=== PATIENT | female | born 1985 | race Caucasian/White ===

== ENCOUNTER → 2023-06-08 07:28 | Outpatient (REF) | payer OTHER, SELFPAY | LOC: EMG 07:28 | PROVIDERS: ATTENDING PHYSICIAN Psychiatry & Neurology Neurology; FAMILY PHYSICIAN Nurse Practitioner Family | DX: R20.0 Anesthesia of skin (principal) | CPT/HCPCS: 95886; 95909 ==

== ENCOUNTER → 2023-06-08 12:52 | Outpatient (REF) | payer OTHER, SELFPAY | LOC: HWRAD 12:52 | PROVIDERS: ATTENDING PHYSICIAN Psychiatry & Neurology Neurology; FAMILY PHYSICIAN Nurse Practitioner Family | DX: R07.9 Chest pain, unspecified (principal); E04.1 Nontoxic single thyroid nodule | CPT/HCPCS: 71046; 76536 ==

== ENCOUNTER → 2023-06-14 07:18 | Outpatient (REF) | payer OTHER, SELFPAY | LOC: MRI 3T 07:18 | PROVIDERS: ATTENDING PHYSICIAN Psychiatry & Neurology Neurology; FAMILY PHYSICIAN Nurse Practitioner Family | DX: G54.0 Brachial plexus disorders (principal) | CPT/HCPCS: 71550 ==

== ENCOUNTER → 2023-08-07 07:17 | Outpatient (REF) | payer OTHER, SELFPAY | LOC: HWRAD 07:17 | PROVIDERS: ATTENDING PHYSICIAN Nurse Practitioner Family | DX: R59.1 Generalized enlarged lymph nodes (principal) | CPT/HCPCS: 76536 ==

== ENCOUNTER → 2023-10-09 10:34 | Outpatient (REF) | payer OTHER, SELFPAY ==
[2023-10-09 11:35] LABS: % Basophils 0.8 % (0-2); % Eosinophils 2.1 % (0-6); % Immature Granulocytes 0.2 % (0-0.5); % Lymphocytes 28.7 % (20.5-51.1); % Monocytes 6.6 % (1.7-9.3); % Neutrophils 61.6 % (42.2-75.2); Absolute Eosinophils 0.1 10^3/uL (0-0.7); Absolute Lymphocytes 1.4 10^3/uL (1.2-3.4); Absolute Monocytes 0.3 10^3/uL (0.1-0.6); Hematocrit 35.7 % (37.0-47.0); Hemoglobin 12.6 g/dL (12.0-16.0); Mean Corp Hgb Conc. 35.3 g/dL (33.0-37.0); Mean Platelet Volume 10.6 fL (7.4-10.4); Nucleated Red Blood Cells % 0 %; Platelet Count 198 10^3/uL (130-400); Red Cell Dist. Width 12.9 % (11.5-14.5); White Blood Cell Count 4.9 10^3/uL (4.8-10.8)
[2023-10-09 11:44] LABS: ALT (SGPT) 40 U/L (0-35); AST (SGOT) 37 U/L (14-36); Albumin 4.8 g/dl (3.5-5.0); Alkaline Phosphatase 62 U/L (38-126); Blood Urea Nitrogen 13 mg/dl (7-17); Calcium 9.5 mg/dl (8.4-10.2); Carbon Dioxide 30 mmol/L (22-30); Chloride 103 mmol/L (98-107); Glucose 86 mg/dl (70-99); Lipase 165 U/L (23-300); Potassium 4.3 mmol/L (3.5-5.1); Sodium 142 mmol/L (135-145); Total Bilirubin 0.5 mg/dl (0.2-1.3); Total Protein 7.9 g/dl (6.3-8.2); eGFR > 60.00
== END ==
LOC: HWLAB 10:34
PROVIDERS: ATTENDING PHYSICIAN Nurse Practitioner Family
DX: M54.50 Low back pain, unspecified (principal); Z87.442 Personal history of urinary calculi
CPT/HCPCS: 36415; 72110; 74018; 80053; 83690; 85025

== ENCOUNTER → 2023-10-14 11:58 | Outpatient (REF) | payer OTHER, SELFPAY | LOC: HWRAD 11:58 | PROVIDERS: ATTENDING PHYSICIAN Nurse Practitioner Family | DX: R10.2 Pelvic and perineal pain (principal); M54.50 Low back pain, unspecified | CPT/HCPCS: 74177; Q9967 ==

== ENCOUNTER 2023-10-27 06:10 | Outpatient (RCR) | payer OTHER, SELFPAY | END 2023-10-27 23:59 | disposition home or self-care (01) | LOC: RPT 06:10 | PROVIDERS: ATTENDING PHYSICIAN Psychiatry & Neurology Neurology; FAMILY PHYSICIAN Nurse Practitioner Family | DX: G54.0 Brachial plexus disorders (principal); Z73.6 Limitation of activities due to disability; M62.81 Muscle weakness (generalized) | CPT/HCPCS: 97110; 97163 ==

== ENCOUNTER 2023-11-11 18:05 | Outpatient (RCR) | payer OTHER, SELFPAY | END 2023-11-13 07:16 | disposition home or self-care (01) | LOC: RPT 18:05 | PROVIDERS: ATTENDING PHYSICIAN Psychiatry & Neurology Neurology; FAMILY PHYSICIAN Nurse Practitioner Family | DX: G54.0 Brachial plexus disorders (principal); Z73.6 Limitation of activities due to disability; M62.81 Muscle weakness (generalized) | CPT/HCPCS: 97110; 97140 ==

== ENCOUNTER 2024-01-19 16:39 | Inpatient (IN) | payer OTHER, SELFPAY ==
[2024-01-15 11:32] LABS: % Basophils 0.6 % (0-2); % Eosinophils 2.1 % (0-6); % Immature Granulocytes 0.2 % (0-0.5); % Lymphocytes 34.7 % (20.5-51.1); % Monocytes 5.8 % (1.7-9.3); % Neutrophils 56.6 % (42.2-75.2); Absolute Eosinophils 0.1 10^3/uL (0-0.7); Absolute Lymphocytes 1.8 10^3/uL (1.2-3.4); Absolute Monocytes 0.3 10^3/uL (0.1-0.6); Absolute Neutrophils 2.9 10^3/uL (1.4-6.5); Hematocrit 33.5 % (37.0-47.0); Hemoglobin 11.7 g/dL (12.0-16.0); Mean Corp Hgb Conc. 34.9 g/dL (33.0-37.0); Mean Corpuscular Hgb 29.3 pg (27.0-31.0); Mean Platelet Volume 10.2 fL (7.4-10.4); Nucleated Red Blood Cells % 0 %; Platelet Count 204 10^3/uL (130-400); Red Blood Cell Count 3.99 10^6/uL (4.20-5.40); Red Cell Dist. Width 12.3 % (11.5-14.5); White Blood Cell Count 5.1 10^3/uL (4.8-10.8)
[2024-01-15 11:40] LABS: INR 1.12; PT 14.3 Sec (11.4-14.6)
[2024-01-15 11:55] LABS: Blood Urea Nitrogen 12 mg/dl (7-17); Calcium 9.7 mg/dl (8.4-10.2); Carbon Dioxide 28 mmol/L (22-30); Chloride 102 mmol/L (98-107); Glucose 82 mg/dl (70-99); Potassium 4.3 mmol/L (3.5-5.1); Sodium 141 mmol/L (135-145); eGFR > 60.00
[2024-01-19] VITALS (24 sets, daily range): BP systolic 30–132; BP diastolic 52–93; BMI 21.3
[2024-01-19 10:06] LABS: HCG, Urine Qualitative Screen Negative
[2024-01-19] MEDS: BACTROBAN NASAL 1 GRAM NASAL (10:06)
[2024-01-19] MEDS: NSS 500 IV (10:06)
[2024-01-19] MEDS: VANCOCIN 200 IV (10:48)
--- NOTE | 2024-01-19 11:52 | W.SUR.PREOP ---
Pre-Operative Surgical Note
-
I have examined this patient prior to the performance of the scheduled procedure.
The patient's condition is unchanged from the time of the current History and
Physical and the patient is able to undergo the scheduled procedure.
--- NOTE | 2024-01-19 14:28 | OR.RPT ---
Operative Report
Operative Report
Date of Operation: 01/19/2024
Pre Op Diagnosis: Left-sided neurogenic thoracic outlet syndrome
Post Op Diagnosis: Left-sided neurogenic thoracic outlet syndrome
Procedure: LEFT transaxillary first rib resection
Surgeon: Mann Stearns III, MD
Anesthesia: General
Complications: None
Estimated Blood Loss: 20 cc
History and Indications for Procedure: 38-year-old female with neurogenic thoracic outlet syndrome. She had failed nonoperative therapy. She was brought to the operating room for thoracic outlet decompression.
Procedure in Detail: Yana Blair was correctly identified and placed supine on the operating table. After adequate induction of anesthesia she was positioned into a right lateral decubitus position on a beanbag with her left side facing
towards the ceiling. All pressure points were closely inspected and padded with the assistance of the nursing and anesthesia staff. The left arm, axilla and chest were prepped and draped in the usual sterile fashion. Preoperative antibiotics were
administered. A timeout procedure was performed with the nursing and anesthesia staff confirming the patients identity as well as the nature and laterality of the procedure.
At the base of the left axillary hairline a horizontal incision was made. Dissection was carried straight down to the chest wall using electrocautery. I then tunneled up towards the first rib using blunt dissection, staying right along the chest
wall. Using a combination of electrocautery and gentle blunt dissection the subclavian vein, subclavian artery, anterior scalene muscle and brachial plexus were exposed clearly over the superior margin of the first rib. Using electrocautery, a
periosteal elevator and blunt finger dissection the inferior margin of the first rib was exposed. Blunt finger dissection was used to gently sweep the pleura away from the under surface of the first rib. A right angle clamp was used with
electrocautery to divide the anterior scalene muscle at its insertion onto the first fib. On palpation of the anterior scalene insertion there was an obvious focal bony protuberance. The anterior and posterior cuts were made on the first rib with
the physician scribe and the intervening segment of rib was removed and sent to pathology. Additional bone margin was taken anteriorly and posteriorly on the first rib with a rongeur and the space was widely decompressed. I clearly visualized the brachial
plexus and freed up surrounding tissue using forceps and careful scissor dissection. The posterior edge of the first rib was taken back well posterior to the brachial plexus. With manipulation of the arm, digital palpation and visual inspection I
confirmed wide decompression of the space. The bone edges anteriorly and posteriorly were softened with a rasp. The space was closely inspected and hemostasis was achieved. The space was filled with saline solution and no loss of volume was
demonstrated. A Valsalva maneuver was performed with saline in the wound space and no air bubbles were visualized. The saline was then suctioned away. The wound was then irrigated with saline. A #10 JATINDER drain was left high in the axilla and brought
out through a separate stab incision at the skin.
The wound was then closed in multiple layers and a sterile dressing applied.
The patient tolerated the procedure well and was taken to the PACU in stable condition.
Attestation: I was present and responsible for the entire procedure
Signed:
Mann Stearns III, MD
[facility]
[phone] (ssyl)
[2024-01-19] MEDS: DILAUDID 0.5 MG IV ×4 (14:43→15:40)
[2024-01-19 14:56] LABS: Hematocrit 31.9 % (37.0-47.0); Hemoglobin 11.4 g/dL (12.0-16.0); Mean Corp Hgb Conc. 35.7 g/dL (33.0-37.0); Mean Corpuscular Hgb 31.1 pg (27.0-31.0); Mean Corpuscular Volume 87.2 fL (81.0-99.0); Platelet Count 185 10^3/uL (130-400); Red Blood Cell Count 3.66 10^6/uL (4.20-5.40); Red Cell Dist. Width 12.5 % (11.5-14.5); White Blood Cell Count 8.8 10^3/uL (4.8-10.8)
[2024-01-19 15:11] LABS: Blood Urea Nitrogen 9 mg/dl (7-17); Calcium 8.7 mg/dl (8.4-10.2); Carbon Dioxide 26 mmol/L (22-30); Chloride 103 mmol/L (98-107); Estimated Creatinine Clearance 119 ml/min; Glucose 93 mg/dl (70-99); Potassium 4.1 mmol/L (3.5-5.1); Sodium 139 mmol/L (135-145); eGFR > 60.00
--- NOTE | 2024-01-19 15:14 | CON.INTV ---
Consultation
Consultation Request
Date/Time Consultation Requested: 01/19/2024-3:30 PM
Date/Time Consultation Performed: 01/19/2024-3:30 PM
Requesting Provider: Vascular surgery
Performing Provider: Dr. Perez
Reason for Consultation: Postoperative critical care management
Medical History
-
Chief Complaint: Thoracic outlet syndrome
History of Present Illness:
38-year-old female with a history of neurogenic thoracic outlet syndrome, allergic rhinitis, asthma, endometriosis who underwent multiple modalities of treatment for her thoracic outlet syndrome and underwent transaxillary first rib
resection/scalenectomy-instructor business education consulted for postoperative critical care management 01/19/2024. All I am seeing her postoperatively in the surgical ICU. She denies any shortness of breath, asthma exacerbations, chest tightness, denies any
incisional pain. She has no pleurisy, abdominal pain, nausea, vomiting, weakness, or leg swelling.
Past Medical History
Past Medical History: None (Neurogenic thoracic outlet syndrome. Allergic rhinitis. Asthma. Endometriosis. Nephrolithiasis. Cephalexin induced hives. Sulfa drugs-anaphylaxis)
Social History
Tobacco: Non-smoker
Drug: None
Personal:
Living: With Family
Occupational Exposures: No known asbestos exposure
Environmental Exposures: No known tuberculosis exposure
Family History
Family History: Reviewed & Not Pertinent
Allergies / Home Medications
Allergies
Allergy/AdvReac Type Severity Reaction Status Date / Time
cephalexin Allergy Hives Verified 01/19/24 09:59
Sulfa (Sulfonamide Allergy Anaphylaxis Verified 01/19/24 09:59
Antibiotics)
Home Medications
�Medication �Instructions �Recorded �Confirmed �Last Taken �Type
albuterol sulfate 90 mcg/actuation 1 puff inhalation Q4HPRN PRN 10/25/14 01/19/24 01/05/24 History
aerosol inhaler (Ventolin HFA) shortness of breath
ascorbic acid (vitamin C) 500 mg 1,000 mg PO DAILY 03/01/19/24 01/18/24 08:00 History
tablet (Vitamin C)
cetirizine 10 mg tablet 10 mg PO DAILY 07/16/21 01/19/24 01/18/24 08:00 History
tramadol 50 mg tablet 50 mg PO HS 01/12/24 01/19/24 01/17/24 History
fluticasone 500 mcg-salmeterol 50 1 inh inhalation R BID 01/19/24 01/19/24 01/19/24 08:00 History
mcg/dose blistr powdr for
inhalation (Wixela Inhub)
multivit-iron 18 mg-folic acid 400 1 tab PO DAILY 01/19/24 01/19/24 01/18/24 08:00 History
mcg-calcium 500 mg-minerals tablet
(Women's One Daily)
Review of Systems
-
Unable to Obtain full review of systems at this time due to: Other (Per HPI)
Vitals / Labs / Diagnostic Testing
Vital Signs
Temp Pulse Resp BP Pulse Ox
98.4 F 71 14 114/73 100
01/19/24 10:22 01/19/24 15:00 01/19/24 15:00 01/19/24 15:00 01/19/24 15:00
Lab Data
01/19/24 14:50
01/19/24 14:50
Diagnostic Testing:
Physical Exam
-
Exam:
Well-nourished and well-developed in no apparent distress
HEENT-atraumatic, normocephalic
Neck-supple, no JVD, no bruit
Heart-regular rate and rhythm-no murmurs, rubs or gallops
Chest-clear to auscultation, no wheezes, crackles
Back-no tenderness
Abdomen-soft, nontender, nondistended, no hepatosplenomegaly
Extremities-no cyanosis, clubbing, edema and good peripheral pulses
Integument-intact, no rashes, lesions or ecchymosis
Neurology-alert and oriented, nonfocal motor and sensory exam
Assessment
-
38-year-old female with a history of neurogenic thoracic outlet syndrome, allergic rhinitis, asthma, endometriosis who underwent multiple modalities of treatment for her thoracic outlet syndrome and underwent transaxillary first rib
resection/scalenectomy-instructor business education consulted for postoperative critical care management 01/19/2024.
Neurogenic thoracic outlet syndrome
Status post transaxillary left rib resection-Dr. Stearns-01/19/2024
Mild hiifcj-leukvvzpcv-wzyspysmsy 11.4
Conditions present prior to admission:
Neurogenic thoracic outlet syndrome.
Allergic rhinitis.
Asthma.
Endometriosis.
Nephrolithiasis.
Cephalexin induced hives.
Sulfa drugs-anaphylaxis
2014
Plan
Postoperative surgical intensive care unit monitoring
Supplemental oxygen as needed
Incentive spirometry
Aspiration precautions
Neuro and vascular checks per protocol
Vascular surgery following-correspondence and operative notes reviewed
DVT prophylaxis
Early nutrition
Early mobilization
She sees Dr. Judit Contreras from our office once yearly for her asthma which has been stable-maintained on Advair/generic and albuterol as needed
Critical care statement: A total of 45 minutes of critical care time was provided for this patient today. This includes management of unstable vital signs, evaluation of the patient at bedside, reviewing the patient's pertinent medical records
including radiographs, microbiology, laboratory evaluations, and discussion with primary team, consultants, pharmacy, nutrition, physical therapy, case management, charge nurse, critical care nursing, and respiratory therapy.
Diagnostic data:
Chest x-ray 06/08/2023-NAD
Chest x-ray 01/19/2024-NAD, recent probable left first rib resection, mild subcutaneous emphysema superior left hemithorax likely postsurgical
Chest MRI 06/14/2023-no significant MR abnormalities of the brachial plexus, no evidence for cervical rib, degenerative disc disease C4-5 and C5-6, multiple bilateral thyroid nodules, slightly prominent lymph nodes in the right upper neck
CT abdomen and pelvis 10/14/2023-no acute findings, no calculi, moderate degenerative disc disease L5-S1
Data Reviewed
-
EKG: Report reviewed by me
Radiology: Report reviewed by me
CT Scan: Report reviewed by me
Labs: Labs reviewed by me
Old Records: Reviewed
Critical Care Time (in minutes): 45
[2024-01-19] MEDS: NSS 1000 IV (15:38)
[2024-01-19] MEDS: DILAUDID PCA 30 IV (15:57)
[2024-01-19 17:21] LABS: Magnesium 1.9 mg/dl (1.6-2.3)
--- NOTE | 2024-01-19 17:36 | PTCARENOTE ---
Received pt from PACU s/p L transaxillary first rib resection. Assessment WNL with the exception of L axillary surgical site with aquacel, CDI. JATINDER drain with sanguineous output at site. L radial pulse palpable, hand warm and pink. Complaining of
pain 11/10. Instructed on C4 PLANNER usage and pt demonstrated dose delivery. NSS at 80cc/hr infusing with Dilaudid C4 PLANNER. Purwick applied due to bedrest and pain issues with mvmt. Tolerating sips without nausea, diet advanced. at bedside. Oriented to
ICU, call ornelas within reach.
[2024-01-19] MEDS: TYLENOL 650 MG PO (19:25)
[2024-01-19] MEDS: ADVAIR HFA 230/21 MCG INHALER 2 PUFF INH (19:34)
[2024-01-19] MEDS: FLEXERIL 5 MG PO (23:55)
[2024-01-20] VITALS (38 sets, daily range): BP systolic 100–149; BP diastolic 60–94; PULSE 72; O2SAT 98; BMI 21.4
--- NOTE | 2024-01-20 00:09 | PTCARENOTE ---
Pt s/p thoracic outlet decompression, received resting in bed with family at bedside. Pt using PAINT STRIPING MACHINE OPERATOR appropriately, c/o pain consistent in left axilla & surrounding muscles. Flexoril X1 given PO. Pt c/o LUE numbness/tingling, also present pre-op. JATINDER
X1 with small amount sang output. Aquacell CDI. Afebrile, NSR, IV lines flushed/patent. 2L nasal cannula, RT at bedside for breathing treatments. Regular diet ordered, pt just sipping clears at this time. Hypoactive bowel sounds. Bladder scan 695ml,
straight cathed for 800ml clear yellow urine. Will monitor.
[2024-01-20] MEDS: NSS 1000 IV (04:11)
[2024-01-20 04:18] LABS: Hematocrit 28.4 % (37.0-47.0); Hemoglobin 10.3 g/dL (12.0-16.0); Mean Corp Hgb Conc. 36.3 g/dL (33.0-37.0); Mean Corpuscular Hgb 30.1 pg (27.0-31.0); Platelet Count 164 10^3/uL (130-400); Red Blood Cell Count 3.42 10^6/uL (4.20-5.40); Red Cell Dist. Width 12.7 % (11.5-14.5); White Blood Cell Count 9.3 10^3/uL (4.8-10.8)
--- NOTE | 2024-01-20 04:21 | PTCARENOTE ---
Pt resting comfortably, using SAND OPERATOR Dilaudid appropriately. Pt states pain is 5/10 in left armpit area, but that is an acceptable pain level for her at this time. AM labs pending. Encouraged pt to cough/deep breathe/use IS when awake. Will monitor.
[2024-01-20 04:27] LABS: APTT 29.3 Sec (23.4-35.0)
[2024-01-20 04:44] LABS: Blood Urea Nitrogen 6 mg/dl (7-17); Calcium 8.5 mg/dl (8.4-10.2); Carbon Dioxide 23 mmol/L (22-30); Chloride 106 mmol/L (98-107); Estimated Creatinine Clearance 119 ml/min; Glucose 88 mg/dl (70-99); Potassium 4.2 mmol/L (3.5-5.1); Sodium 139 mmol/L (135-145); eGFR > 60.00
--- NOTE | 2024-01-20 05:25 | DOWNTIME ---
There was a [employer] Client Branch Associate Downtime on 01/20/2024 from 0100 to 01/20/2024 at 0300. Downtime documentation of patient's care, including medication administrations, has been reconciled in the electronic record per guidelines. Refer to the
patient's paper chart under the miscellaneous tab to see printed paper medication records and downtime forms.
[2024-01-20] MEDS: ADVAIR HFA 230/21 MCG INHALER 2 PUFF INH ×2 (07:32→19:37)
--- NOTE | 2024-01-20 07:38 | W.PN.INTV ---
Today's Communication / Plan
Recommendations
Wean oxygen
SSIS DEVELOPER pump wean
Follow-up chest x-ray
Assessment
-
38-year-old female with a history of neurogenic thoracic outlet syndrome, allergic rhinitis, asthma, endometriosis who underwent multiple modalities of treatment for her thoracic outlet syndrome and underwent transaxillary first rib
resection/scalenectomy-field service analyst consulted for postoperative critical care management 01/19/2024.
Neurogenic thoracic outlet syndrome
Status post transaxillary left rib resection-Dr. Stearns-01/19/2024
Small left apical pneumothorax
Mild twolfn-kutrjebqaj-hyhucmmrik 11.4
Conditions present prior to admission:
Neurogenic thoracic outlet syndrome.
Allergic rhinitis.
Asthma.
Endometriosis.
Nephrolithiasis.
Cephalexin induced hives.
Sulfa drugs-anaphylaxis
2014
Plan
Postoperative surgical intensive care unit monitoring
Supplemental oxygen as needed-attempt to wean
Incentive spirometry
Aspiration precautions
Chest x-ray with small left apical pneumothorax
Repeat chest x-ray in several hours
Neuro and vascular checks per protocol
Vascular surgery following-correspondence and operative notes reviewed
SSIS DEVELOPER pump wean
DVT prophylaxis
Early nutrition
Early mobilization
She sees Dr. Judit Contreras from our office once yearly for her asthma which has been stable-maintained on Advair/generic and albuterol as needed
Reviewed the patient's pertinent medical records including radiographs, microbiology, laboratory evaluations, and discussion with primary team, consultants, pharmacy, nutrition, physical therapy, case management, charge nurse, critical care
nursing, and respiratory therapy.
Diagnostic data:
Chest x-ray 06/08/2023-NAD
Chest x-ray 01/19/2024-NAD, recent probable left first rib resection, mild subcutaneous emphysema superior left hemithorax likely postsurgical
Chest MRI 06/14/2023-no significant MR abnormalities of the brachial plexus, no evidence for cervical rib, degenerative disc disease C4-5 and C5-6, multiple bilateral thyroid nodules, slightly prominent lymph nodes in the right upper neck
CT abdomen and pelvis 10/14/2023-no acute findings, no calculi, moderate degenerative disc disease L5-S1
Subjective Dataa
Subjective Data
Date of Service:
Date of Service: January 20, 2024
Chief Complaint: Driver Guide Follow Up and Pulmonary Follow Up
Subjective:
Some complains of left-sided pleurisy, no increase shortness of breath, wheezing, abdominal pain
Review of Systems
General: Other (Per HPI)
Objective Data
Data Reviewed
Vital Signs / I&O / Oxygen:
Vital Signs
Temp Pulse Resp BP Pulse Ox
98.7 F 74 16 100/60 99
01/20/24 04:24 01/20/24 07:32 01/20/24 07:32 01/20/24 03:00 01/20/24 07:32
Intake and Output
01/19/24 01/20/24 01/21/24
06:59 06:59 06:59
Intake Total 1240 / 1240
Output Total 890 / 890
Balance 350 / 350
SaO2 99
Nasal Cannula flow liters per 1.5
minute
Physical Exam
General: Respiratory Distress (n) and Comfortable
HEENT: Normocephalic, Anicteric and Moist Mucous Membranes
Cardiovascular: Regular Rhythm
Respiratory: Wheeze (n), Crackles (n), Rhonchi (n), Non-Labored Respirations, Accessory Resp Muscle Use (n) and Stridor (n)
GI: Soft, Non Distended and Non Tender
Neurology: Awake, Alert and No Motor Deficits
Skin: Warm, Good Color, Cyanosis (n), Jaundice (n) and Rash (n)
Labs/Micro/Reports
Lab Data
01/20/24 04:01
01/20/24 04:01
Laboratory Results
01/19/24 01/20/24
16:48 04:01
PT Cancelled 15.0 H
INR Cancelled 1.20
APTT Cancelled 29.3
[2024-01-20] MEDS: ZYRTEC 10 MG PO (07:59)
[2024-01-20] MEDS: THERAGRAN 1 TABLET PO (07:59)
[2024-01-20] MEDS: VITAMIN C 1000 MG PO (07:59)
--- NOTE | 2024-01-20 08:02 | W.PN.VS ---
Addendum entered and electronically signed by Elan Jordan MD 01/20/24 09:34:
Seen and examined with JANUSZ Carl. Agree with findings as noted below. Patient notes some expected postoperative pain in the scapular area. Otherwise no significant complaints. No shortness of breath. Left upper extremity axillary incision site
dressing clean dry and intact. No hematoma. JATINDER drain serosanguineous. 90 cc total noted. Left arm is soft. Palpable radial pulse. Motor/sensory function intact. Chest x-ray this morning with a small questionable apical pneumothorax but not
clear that it is indeed so. Plan/repeat chest x-ray this morning. PT/OT. Continue JATINDER drain for today. Continue ICU monitoring for now.
Original Note:
Today's Communication / Plan
-
Patient seen and examined at bedside with Dr. Elan Jordan, below plan reviewed with attending
Assessment/Plan
-
Assessment: 38-year-old female POD #1 left first rib resection
Plan:
Given output continue JATINDER drain
Will continue HEAT SEALING MACHINE OPERATOR at this morning, and reevaluate this afternoon if transitioning to p.o. pain management
PT eval and treat
Repeat chest x-ray given official report stating small pneumothorax
Subjective Data
-
Date of Service: January 20, 2024
Patient seen and examined at bedside, does report discomfort at left surgical site radiating to scapula that is managed currently with HEAT SEALING MACHINE OPERATOR. Denies nausea, vomiting, fever, and chills. Does report an improvement in preoperative symptoms such as
left arm paresthesia.
Objective Data
-
Vital Signs
Temp Pulse Resp BP Pulse Ox
98.7 F 74 16 119/74 99
01/20/24 04:24 01/20/24 07:32 01/20/24 07:32 01/20/24 07:00 01/20/24 07:32
Intake and Output
01/19/24 01/20/24 01/21/24
06:59 06:59 06:59
Intake Total 1320 / 1320
Output Total 890 / 890
Balance 430 / 430
Intake:
IV fluids (Total) 1320 / 1320
Normosol 200 / 200
Nss 1,000 ml @ 80 mls/hr IV . 1120 / 1120
[id number] BRENDAN Rx#:[id number]
Output:
Drain Output (Total) /
Left Justin-Mcdonald /
Straight cath output 800 / 800
Lab Results
01/20/24 04:01
01/20/24 04:01
Calcium 8.5 mg/dl (8.4-10.2) 01/20/24 04:01
Magnesium 1.9 mg/dl (1.6-2.3) 01/19/24 14:50
Physical Exam
-
Awake alert oriented x 3, no apparent distress
No tachycardia
No dyspnea
Left upper extremity surgical dressing and drain dressing CDI, no edema, JATINDER drain with serosanguineous output
ABD flat
--- NOTE | 2024-01-20 08:30 | PTCARENOTE ---
Rec'd pt at 0700 awake alert and oriented resting in bed. States overall she is ok but does have 7/10 L shoulder/scapular discomfort that radiates down her L rib cage. Dr. Jordan in and aware. Pt is using Dilaudid LINE UP MACHINE OPERATOR- 0.2 mg dose, 10 minute lockout,
total 1.2 mg/hr max. Infusing via R forearm IV site. L arm is warm- hand is sl cool but nailbeds are pink with refill <2 sec. + radial pulse. Admits to L arm heaviness and sl numbess in the the L upper arm. + movement. L axially with aquacell
dressing that is D+I. L lateral chest JATINDER drain with sang. drainage. JATINDER stipped by Dr. Jordan. Respirs are unlabored. Was on 2l nc with sats of 99%- changed at 0800 to RA with sats of 98%. BS are clear. Monitor SR. + pulses. No edema. VS as documented.
Abd is soft with + BS. Admits to a limited appetite and very sl nausea. Denies need to void currently. IV NSS infusing at 80 ml/hr along with Dilaudid LINE UP MACHINE OPERATOR via R forearm IV Site. Site wnl. Capped int intact R hand. Pt able to help with repositioning.
Plan of care reviewed with pt. Call ornelas in reach.
[2024-01-20] MEDS: TORADOL 15 MG IV ×3 (09:14→23:05)
[2024-01-20] MEDS: D5/0.45%NACL 1000 IV (09:15)
--- NOTE | 2024-01-20 09:15 | PTCARENOTE ---
Pt medicated with Toradol 15 mg IV per MD order. Fair appetite for breakfast. Ate about 40%- states she is just not hungry.
--- NOTE | 2024-01-20 10:20 | PTCARENOTE ---
States the Toradol is helping the L shoulder/arm/rib discomfort. [place] as if she could void. Assisted oob to the commode and voided 950 mls of yellow urine. Complete CHG bath given. Pt assisted to the chair- gait is steady but pt admits she feels
weak. Denies dizziness. Getting 1800 on IS sitting oob. Pt did her own oral care and is sitting oob currently. Call ornelas in reach. Repeat CXRay taken. Call ornelas in reach.
--- NOTE | 2024-01-20 11:10 | PTCARENOTE ---
Pt worked with PT and ambulated in the [place]. Gait was steady but did feel lightheaded- needed to sit for a few minutes [address] through walk. Admits to the L scapular through rib soreness. Pulses unchanged. VS as documented. States sitting up in the
chair feels better than in bed. Family in to see pt. Call ornelas in reach.
--- NOTE | 2024-01-20 12:14 | PTCARENOTE ---
Remains sitting oob. States pain is about a 5. Only new complaint is of some itching feeling in her neck/back/chest and legs. No rash noted. O2 sats are 100% on RA. L arm is warm. + pulses. Axiallary dressing is D+I. JATINDER with sang drainage to bulb
suction. Visiting with family. Will update Vascular surgery. Call ornelas in reach.
[2024-01-20] MEDS: BENADRYL 25 MG IV (12:44)
--- NOTE | 2024-01-20 12:45 | PTCARENOTE ---
Medicated with Benadryl 25 mg IV for itching. Remains resting oob. No rash noted
[2024-01-20] MEDS: ROXICODONE 5 MG PO ×3 (13:26→23:07)
--- NOTE | 2024-01-20 13:45 | PTCARENOTE ---
Pt remains sitting oob. States that the Benadryl helped the itching. Medicated at 1326 with Oxycodone 5 mg po for c/o 6/10 L scapula/arm discomfort, ENVIRONMENTAL COMPLIANCE INSPECTOR and IV fluids dc'd at 1340. Pt then assisted to the bathroom to void. Voided large amt of
urine in the toilet. No other changes.
--- NOTE | 2024-01-20 16:26 | PTCARENOTE ---
Remains sitting oob in the chair visiting with family. No changes in assessment
--- NOTE | 2024-01-20 16:41 | CM ---
Patient seen at bedside with patient friend also present. Patient states she lives with her family in a 2 story home with a nebulizer. Patient PCP is [facility] and she sees the JAIMA Lopez. Patient uses the [facility] in
[place] and stated that she plans on going home with no needs. CM will continue to follow for discharge planning needs.
Plan; home with no needs vs home with Vn
[2024-01-21] VITALS (13 sets, daily range): BP systolic 115–134; BP diastolic 63–86; PULSE 82; O2SAT 98; BMI 21.3
--- NOTE | 2024-01-21 00:30 | PTCARENOTE ---
Pt with much better pain relief with toradol/julia PRN. OOB to bathroom. LUE warm/pink with strong pulse. Will monitor.
[2024-01-21] MEDS: ROXICODONE 5 MG PO ×3 (03:26→12:44)
[2024-01-21 04:15] LABS: Hematocrit 28.3 % (37.0-47.0); Hemoglobin 10.1 g/dL (12.0-16.0); Mean Corp Hgb Conc. 35.7 g/dL (33.0-37.0); Mean Platelet Volume 9.8 fL (7.4-10.4); Platelet Count 163 10^3/uL (130-400); Red Blood Cell Count 3.37 10^6/uL (4.20-5.40); Red Cell Dist. Width 12.9 % (11.5-14.5); White Blood Cell Count 7.1 10^3/uL (4.8-10.8)
[2024-01-21 04:35] LABS: Blood Urea Nitrogen 10 mg/dl (7-17); Calcium 8.6 mg/dl (8.4-10.2); Carbon Dioxide 24 mmol/L (22-30); Chloride 105 mmol/L (98-107); Estimated Creatinine Clearance 119 ml/min; Glucose 91 mg/dl (70-99); Potassium 4.1 mmol/L (3.5-5.1); Sodium 141 mmol/L (135-145); eGFR > 60.00
[2024-01-21] MEDS: TORADOL 15 MG IV ×2 (05:45→11:39)
--- NOTE | 2024-01-21 06:41 | PTCARENOTE ---
No change in previous assessment. See flow for more info.
[2024-01-21] MEDS: THERAGRAN 1 TABLET PO (07:35)
[2024-01-21] MEDS: VITAMIN C 1000 MG PO (07:35)
--- NOTE | 2024-01-21 07:35 | W.PN.INTV ---
Today's Communication / Plan
Recommendations
follow chest x-ray
Analgesia per vascular surgery
Remove JATINDER drain
Transfer out of ICU-possibly home
Assessment
-
38-year-old female with a history of neurogenic thoracic outlet syndrome, allergic rhinitis, asthma, endometriosis who underwent multiple modalities of treatment for her thoracic outlet syndrome and underwent transaxillary first rib
resection/scalenectomy-fire and safety helper consulted for postoperative critical care management 01/19/2024.
Neurogenic thoracic outlet syndrome
Status post transaxillary left rib resection-Dr. Stearns-01/19/2024
Small left apical pneumothorax
Mild rfkffy-wufyeksebm-[id number] 11.4
Conditions present prior to admission:
Neurogenic thoracic outlet syndrome.
Allergic rhinitis.
Asthma.
Endometriosis.
Nephrolithiasis.
Cephalexin induced hives.
Sulfa drugs-anaphylaxis
2014
Plan
Postoperative surgical intensive care unit monitoring
Supplemental oxygen as needed-attempt to wean
Incentive spirometry
Aspiration precautions
Chest x-ray with small left apical pneumothorax
Follow daily chest x-ray
Neuro and vascular checks per protocol
Vascular surgery following-correspondence and operative notes reviewed
LOAN MANAGER pump conversion to oral medications
Remove JATINDER drain and follow-up chest x-ray
DVT prophylaxis
Early nutrition
Early mobilization
Patient stable for transfer out of ICU-call pulmonary if respiratory issues arise
She sees Dr. Judit Contreras from our office once yearly for her asthma which has been stable-maintained on Advair/generic and albuterol as needed
Reviewed the patient's pertinent medical records including radiographs, microbiology, laboratory evaluations, and discussion with primary team, consultants, pharmacy, nutrition, physical therapy, case management, charge nurse, critical care
nursing, and respiratory therapy.
Diagnostic data:
Chest x-ray 06/08/2023-NAD
Chest x-ray 01/19/2024-NAD, recent probable left first rib resection, mild subcutaneous emphysema superior left hemithorax likely postsurgical
Chest MRI 06/14/2023-no significant MR abnormalities of the brachial plexus, no evidence for cervical rib, degenerative disc disease C4-5 and C5-6, multiple bilateral thyroid nodules, slightly prominent lymph nodes in the right upper neck
CT abdomen and pelvis 10/14/2023-no acute findings, no calculi, moderate degenerative disc disease L5-S1
Subjective Dataa
Subjective Data
Date of Service:
Date of Service: January 21, 2024
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
Subjective:
Slept better, pain better controlled, no shortness of breath, wheezing, or abdominal pain
Review of Systems
General: Other (Per HPI)
Objective Data
Data Reviewed
Vital Signs / I&O / Oxygen:
Vital Signs
Temp Pulse Resp BP Pulse Ox
99.1 F 68 11 121/69 99
01/21/24 07:34 01/21/24 07:00 01/21/24 07:00 01/21/24 07:00 01/21/24 07:00
Intake and Output
01/20/24 01/21/24 01/22/24
06:59 06:59 06:59
Intake Total 1320 / 1400 2012.2 / 2012.2
Output Total 890 / 890 1015 / 1015
Balance 430 / 510 997.2 / 997.2
SaO2 99
Nasal Cannula flow liters per 1.5
minute
Physical Exam
General: Respiratory Distress (n) and Comfortable
HEENT: Normocephalic, Anicteric and Moist Mucous Membranes
Cardiovascular: Regular Rhythm
Respiratory: Wheeze (n), Crackles (n), Rhonchi (n), Non-Labored Respirations, Accessory Resp Muscle Use (n) and Stridor (n)
GI: Soft, Non Distended and Non Tender
Neurology: Awake, Alert and No Motor Deficits
Skin: Warm, Good Color, Cyanosis (n), Jaundice (n) and Rash (n)
Labs/Micro/Reports
Lab Data
01/21/24 03:33
01/21/24 03:33
[2024-01-21] MEDS: ZYRTEC 10 MG PO (07:36)
[2024-01-21] MEDS: COLACE 100 MG PO (07:37)
[2024-01-21] MEDS: ADVAIR HFA 230/21 MCG INHALER 2 PUFF INH (07:38)
--- NOTE | 2024-01-21 07:42 | W.PN.VS ---
Today's Communication / Plan
-
See plan below for today 01/21/2024.
Assessment/Plan
-
Assessment: 38-year-old female POD #2 left first rib resection
Plan:
� Improved pain control today. Overall better. Out of bed, physical therapy/Occupational Therapy again.
� Repeat chest x-ray pending this morning. If stable (questionable tiny apical pneumothorax) and JATINDER drainage remains low and serous, likely discontinue JATINDER drain this morning. Followed by repeat chest x-ray 1 to 2 hours following removal of drain.
� Possible discharge later today. Outpatient physical therapy.
-
Total Time Spent with Patient (in minutes): 15
Subjective Data
-
Date of Service: January 21, 2024
Patient without any new complaints this morning. She notes that her postoperative pain has improved significantly. She feels much better today. No shortness of breath.
Objective Data
-
Vital Signs
Temp Pulse Resp BP Pulse Ox
99.1 F 68 11 121/69 99
01/21/24 07:34 01/21/24 07:00 01/21/24 07:00 01/21/24 07:00 01/21/24 07:00
Intake and Output
01/20/24 01/21/24 01/22/24
06:59 06:59 06:59
Intake Total 1320 / 1400 2011.2 / 2011.2
Output Total 890 / 890 1015 / 1015
Balance 430 / 510 997.2 / 997.2
Intake:
Oral fluids 1610 / 1610
IV fluids (Total) 1320 / 1400 402.2 / 402.2
D5/0.45%NaCl 1,000 ml @ 40 mls/ 160 / 160
hr IV .Q24H PRN Rx#:[id number]
Normosol 200 / 200
Nss 1,000 ml @ 80 mls/hr IV . 1120 / 1200 240 / 240
[id number] BRENDAN Rx#:[id number]
FITTING ROOM ATTENDANT 2.2 / 2.2
Output:
Drain Output (Total)
Left Justin-Mcdonald
Urine, Voided 950 / 950
Straight cath output 800 / 800
Other:
Number of approximated MODERATE 1
amounts of urine
Number of approximated LARGE 1
amounts of urine
Lab Results
01/21/24 03:33
01/21/24 03:33
Calcium 8.6 mg/dl (8.4-10.2) 01/21/24 03:33
Magnesium 1.9 mg/dl (1.6-2.3) 01/19/24 14:50
Physical Exam
-
Afebrile.
Awake and alert.
Left axillary incision site dressing clean dry and intact. No hematoma.
JATINDER mostly serous, minimally serosanguineous. 20 cc overnight.
Left upper extremity soft. 2+ palpable radial pulse. Motor/sensory fully intact.
[2024-01-21] MEDS: TYLENOL 650 MG PO ×3 (08:58→15:33)
[2024-01-21] MEDS: SENOKOT 8.6 MG PO (11:43)
--- NOTE | 2024-01-21 12:56 | PTCARENOTE ---
pt continues with l upper back pain and some incisional pain. pt feels with increased movement she is having persistent pain. medicated as charted.
--- NOTE | 2024-01-21 13:34 | W.PN.UPDATE ---
Update Note
Progress Note Update
Chest tube removed at bedside, pt tolerated well. CXR in one hour.
--- NOTE | 2024-01-21 13:56 | W.DS.TRANS ---
DC Summary - Wall Man
-
Discharge Instructions:
Discharge Diagnosis/Procedures 1st Rib resection
Diet No restrictions
Activity No strenuous activity
Driving Restrictions No driving for 2 weeks
Bathing Restrictions OK to Shower
Other Services PT
Instructions:
Stand-Alone Forms: DC Instr - Vascular OR
Changes to Home Medications: Yes
Discharge Medications:
DC Medications w/original date entered in [employer]
albuterol sulfate 90 mcg/actuation aerosol inhaler (Ventolin HFA) 1 puff inhalation Q4HPRN PRN shortness of breath 10/25/14
ascorbic acid (vitamin C) 500 mg tablet (Vitamin C) 1,000 mg PO DAILY Supplement 07/16/21
cetirizine 10 mg tablet 10 mg PO DAILY Allergies 07/16/21
fluticasone 500 mcg-salmeterol 50 mcg/dose blistr powdr for inhalation (Wixela Inhub) 1 inh inhalation R BID Lung/Breathing Issues 01/19/24
multivit-iron 18 mg-folic acid 400 mcg-calcium 500 mg-minerals tablet (Women's One Daily) 1 tab PO DAILY Supplement 01/19/24
docusate sodium 100 mg capsule 100 mg PO BIDPRN PRN No BM > 24 hours #20 caps 01/21/24
ketorolac 10 mg tablet 10 mg PO Q6HPRN PRN pain 3 days #12 tabs 01/21/24
oxycodone 5 mg tablet 5 mg PO Q6H PRN Pain 5 days #20 tabs 01/21/24
Home Medication Changes
Stopped Tramodol
Added Roxicodone and Toradol for pain management
Colace for BM
Pending Results: No
--- NOTE | 2024-01-21 13:57 | W.[place]-PDMP ---
[place]-PD[place]
-
Checked the [place]- Prescription Drug Monitoring Program website, no red flags identified; safe to proceed with prescription.
STOPPED home Tramodol while on Roxicodone
--- NOTE | 2024-01-21 15:14 | W.DCSUMMARY ---
Discharge Summary
Discharge Data
Date of Admission: 01/19/24
Date of Discharge: 01/21/24
-
Pending Results: No
Hospital Course
Attending: Jinny
Consultants: Pulmonary medicine,
Allergies: cephalexin, sulfa
Procedure with date: 01/19/2024: Left transaxillary first rib resection
History of present illness: The patient is an 38-year-old female with multiple medical conditions including: asthma, endometriosis, nephrolithiasis. Patient presented on 01/19/2024 for scheduled procedure with Dr. Stearns. Patient presented at baseline
health with no reports of recent illness or trauma.
Hospital Course: Briefly, the patient underwent scheduled rib resection without complications, and recovered in PACU. Following recovery phase one and two patient was transferred to intensive care unit per protocol for continued monitoring.
Property Investor consulted to aid in medical management from a critical care perspective. POD #1 (01/20/2024) Patient doing well overall and tolerating PO diet. Surgical axillary site clean, dry, and intact with suture line well approximated and soft. No
evidence of hematoma. IV fluids discontinued. POD #2 (01/21/24) A.m. chest x-ray with no pneumo. Patient able to ambulate without difficulty or incident. Chest tube pulled this afternoon. Follow-up chest x-ray within normal limits. Patient stable
for discharge to home.
Prescriptions and follow up appointment are included in the DC summary lawn sprinkler servicer note. All instructions were given to the patient in both written and verbal form and the patient expressed understanding.
Discharge Plan
-
Patient Disposition: Home (Routine Discharge)
Discharge Diagnosis/Procedures: 1st Rib resection
Condition: Good
Diet: No restrictions
Activity: No strenuous activity
Driving Restrictions: No driving for 2 weeks
Bathing Restrictions: OK to Shower
Other Services: PT
Stand Alone Forms: DC Instr - Vascular OR
Referrals:
Jean-Paul Lopez CRNP [Family Provider] -
Bibiana Gomez PA-C [Specified Professional Personl] - 02/03/24 9:30 am (Vascular surgery follow up)
Judit Frazier, [Active] - (Follow-up as previously recommended)
Prescriptions:
New
docusate sodium 100 mg Capsule
100 mg PO BIDPRN PRN (Reason: No BM > 24 hours) Qty: 20 0RF
oxycodone 5 mg Tablet
5 mg PO Q6H PRN (Reason: Pain) 5 Days Qty: 20 0RF
ketorolac 10 mg Tablet
10 mg PO Q6HPRN PRN (Reason: pain) 3 Days Qty: 12 0RF
Continued
albuterol sulfate [Ventolin HFA] 90 MCG/PUFF HFA aerosol inhaler
1 puff inhalation Q4HPRN PRN (Reason: shortness of breath)
cetirizine 10 MG tablet
10 mg PO DAILY
ascorbic acid (vitamin C) [Vitamin C] 500 MG tablet
1,000 mg PO DAILY
Women's One Daily 18 mg iron-400 mcg-500 mg Ca Tablet
1 tab PO DAILY
fluticasone propion-salmeterol [Wixela Inhub] 500-50 mcg/dose Blister With Device
1 inh INHALATION R BID
Discontinued
tramadol 50 mg Tablet
50 mg PO HS
Discharge Orders:
Discharge Patient (As Directed); Ordered 01/21/24
Ordered By: Ximena Padron
Discharge Date and Time
Print Language: UPPER SORBIAN
--- NOTE | 2024-01-21 15:51 | PTCARENOTE ---
discharge instructions reviewed with pt, she was made aware that Dr Jordan wanted dressing to stay on until am, but showering was ok. Pt was aware of f/u office visit. and it was confirmed that pt could start physical therapy
--- NOTE | 2024-01-21 15:54 | W.PN.UPDATE ---
Update Note
Progress Note Update
CDI:
Physician Documentation Request
Admit Date: 01/19/24 16:39
Please review the following and provide your response in the progress notes.
Clinical Indicators:
The diagnosis of Small left apical pneumothorax was documented on 01/20/24, but is questionable in subsequent documentation.
Pt admitted with neurogenic thoracic outlet syndrome; post transaxillary resection 01/19/24
01/19 [facility] [place] note: 'Chest x-ray this morning with a small questionable apical pneumothorax but not clear that it is indeed so.'
01/20 [employer] Operator note: 'Small left apical pneumothorax'
Please clarify the following:
Apical pneumothorax was ruled out
01/21/24 CXR: No visualized pneumothorax.
--- NOTE | 2024-01-22 11:36 | PN.CDI ---
CDI
- -
CDI:
Physician Documentation Request
Admit Date: 01/19/24 16:39
Dear Vascular Surgery,
Please review the following and provide your response in the progress notes.
Clinical Indicators:
The diagnosis of Small left apical pneumothorax was documented on 01/20/24, but is questionable in subsequent documentation.
Pt admitted with neurogenic thoracic outlet syndrome; post transaxillary resection 01/19/24
01/19 [facility] note: 'Chest x-ray this morning with a small questionable apical pneumothorax but not clear that it is indeed so.'
01/20 Fiberglass Grinder note: 'Small left apical pneumothorax'
Please clarify the following:
Apical pneumothorax was present is now resolved.
Apical pneumothorax was ruled out
Apical pneumothorax is still a likely, suspected, probable diagnosis
Other
Use of terms such as suspected, likely, concern for, or probable (associated with a specific diagnosis that is being evaluated, monitored, or treated as if it exists) are acceptable and can be coded in the inpatient setting, when documented at the
time of discharge.
Thank you,
Meghan Matamoros RN, BSN
CDI Specialist
Available via [employer]
Please use your independent medical judgment in providing your response.
== END 2024-01-21 15:55 | disposition home or self-care (01) | DRG 30 ==
LOC: ICU 16:39
PROVIDERS: Nurse Practitioner; ADMITTING PHYSICIAN Surgery Vascular Surgery; CONSULT PHYSICIAN Internal Medicine Critical Care Medicine; FAMILY PHYSICIAN Nurse Practitioner Family
PROC: 0W9B30Z Drainage of Left Pleural Cavity with Drainage Device, Percutaneous Approach (ICD-10-PCS; 2024-01-19)
PROC: 0PB10ZZ Excision of 1 to 2 Ribs, Open Approach (ICD-10-PCS; 2024-01-19)
DX: G54.0 Brachial plexus disorders (principal); D64.9 Anemia, unspecified; J45.909 Unspecified asthma, uncomplicated; N80.9 Endometriosis, unspecified; N20.0 Calculus of kidney; Z88.1 Allergy status to other antibiotic agents; Z88.2 Allergy status to sulfonamides; Z79.899 Other long term (current) drug therapy
CPT/HCPCS: 88304; 88311; 21705; 36415; 71045; 71046; 80048; 81025; 83735; 85025; 85027; 85610; 85730; 86850; 86900; 86901; 93005; 94640; 97116; 97162; 97530

== ENCOUNTER → 2024-02-04 12:56 | Outpatient (REF) | payer OTHER, SELFPAY | LOC: RAD 12:56 | PROVIDERS: ATTENDING PHYSICIAN Physician Assistant; FAMILY PHYSICIAN Nurse Practitioner Family | DX: G54.0 Brachial plexus disorders (principal); Z98.890 Other specified postprocedural states | CPT/HCPCS: 71046 ==

== ENCOUNTER 2024-03-02 14:01 | Outpatient (RCR) | payer OTHER, SELFPAY | END 2024-03-02 23:59 | disposition home or self-care (01) | LOC: RPT 14:01 | PROVIDERS: ATTENDING PHYSICIAN Surgery Vascular Surgery; FAMILY PHYSICIAN Nurse Practitioner Family | DX: G54.8 Other nerve root and plexus disorders (principal); Z73.6 Limitation of activities due to disability; M25.60 Stiffness of unspecified joint, not elsewhere classified; M62.81 Muscle weakness (generalized) | CPT/HCPCS: 97010; 97110; 97162 ==

== ENCOUNTER 2024-03-29 08:58 | Outpatient (RCR) | payer OTHER, SELFPAY | END 2024-03-29 23:59 | disposition home or self-care (01) | LOC: RPT 08:58 | PROVIDERS: ATTENDING PHYSICIAN Surgery Vascular Surgery; FAMILY PHYSICIAN Nurse Practitioner Family | DX: G54.8 Other nerve root and plexus disorders (principal); Z73.6 Limitation of activities due to disability | CPT/HCPCS: 97010; 97110 ==

== ENCOUNTER 2024-04-05 13:57 | Outpatient (RCR) | payer OTHER, SELFPAY | END 2024-04-05 23:59 | disposition home or self-care (01) | LOC: RPT 13:57 | PROVIDERS: ATTENDING PHYSICIAN Surgery Vascular Surgery; FAMILY PHYSICIAN Nurse Practitioner Family | DX: G54.8 Other nerve root and plexus disorders (principal); Z73.6 Limitation of activities due to disability | CPT/HCPCS: 97110 ==

== ENCOUNTER → 2024-04-06 08:21 | Outpatient (REF) | payer OTHER, SELFPAY | LOC: HWRAD 08:21 | PROVIDERS: ATTENDING PHYSICIAN Obstetrics & Gynecology Gynecology; FAMILY PHYSICIAN Nurse Practitioner Family | DX: N94.12 Deep dyspareunia (principal) | CPT/HCPCS: 76830; 76856 ==

== ENCOUNTER → 2024-07-26 12:45 | Outpatient (REF) | payer OTHER, SELFPAY | LOC: HWRAD 12:45 | PROVIDERS: FAMILY PHYSICIAN Nurse Practitioner Family | DX: J45.41 Moderate persistent asthma with (acute) exacerbation (principal) | CPT/HCPCS: 71046 ==

== ENCOUNTER → 2024-10-28 16:47 | Outpatient (REF) | payer OTHER, SELFPAY | LOC: RAD 16:47 | PROVIDERS: FAMILY PHYSICIAN Nurse Practitioner Family | DX: R59.0 Localized enlarged lymph nodes (principal) | CPT/HCPCS: 76536 ==

== ENCOUNTER → 2025-03-02 09:44 | Outpatient (REF) | payer OTHER, SELFPAY | LOC: EMG 09:44 | PROVIDERS: ATTENDING PHYSICIAN Physician Assistant; FAMILY PHYSICIAN Nurse Practitioner Family | DX: R20.0 Anesthesia of skin (principal) | CPT/HCPCS: 95886; 95911 ==

== ENCOUNTER → 2025-03-16 12:27 | Outpatient (REF) | payer OTHER, SELFPAY | LOC: HWRAD 12:27 | PROVIDERS: ATTENDING PHYSICIAN Nurse Practitioner Family; REFERRING PHYSICIAN Physician Assistant | DX: R59.1 Generalized enlarged lymph nodes (principal); H02.403 Unspecified ptosis of bilateral eyelids; K14.8 Other diseases of tongue; M79.10 Myalgia, unspecified site; R13.10 Dysphagia, unspecified; R21 Rash and other nonspecific skin eruption; R29.2 Abnormal reflex; R53.83 Other fatigue | CPT/HCPCS: 71046; 76536 ==

== ENCOUNTER → 2025-03-17 09:17 | Outpatient (REF) | payer OTHER, SELFPAY | LOC: HWRAD 09:17 | PROVIDERS: ATTENDING PHYSICIAN Nurse Practitioner Family | DX: M27.8 Other specified diseases of jaws (principal) | CPT/HCPCS: 70110 ==

== ENCOUNTER → 2025-04-17 09:55 | Outpatient (REF) | payer OTHER, SELFPAY | LOC: HWRAD 09:55 | PROVIDERS: ATTENDING PHYSICIAN Obstetrics & Gynecology Gynecology; FAMILY PHYSICIAN Nurse Practitioner Family | DX: N92.1 Excessive and frequent menstruation with irregular cycle (principal) | CPT/HCPCS: 76830; 76856 ==

== ENCOUNTER → 2025-05-02 19:10 | Outpatient (REF) | payer OTHER, SELFPAY | LOC: MRI 19:10 | PROVIDERS: ATTENDING PHYSICIAN Student in an Organized Health Care Education/Training Program; FAMILY PHYSICIAN Nurse Practitioner Family | DX: G57.80 Other specified mononeuropathies of unspecified lower limb (principal); H02.403 Unspecified ptosis of bilateral eyelids; K14.8 Other diseases of tongue; M27.8 Other specified diseases of jaws; M35.01 Sjogren syndrome with keratoconjunctivitis; M79.10 Myalgia, unspecified site; R13.10 Dysphagia, unspecified; R21 Rash and other nonspecific skin eruption; R29.2 Abnormal reflex; R53.83 Other fatigue | CPT/HCPCS: 70543; A9575 ==